=== PATIENT | male | born 1995 | race Caucasian/White ===

== ENCOUNTER 2017-02-18 22:50 | Emergency (ER) | payer BC ==
[~2017-02-18 22:50] MED LIST: Cephalexin 500 MG Cap PO ONE
[2017-02-18] MEDS ORDERED: Lidocaine 1% 20 ML MDV INJECT ONE (22:58)
[2017-02-18] MEDS ORDERED: Bacitracin/Neomycin/Polymyxin B Oint 28.4 GM Tube TOP ONE (22:58)
[2017-02-18] MEDS ORDERED: Diphtheria,Pertussis(Acell),Tetanus Vaccine 0.5 ML Syringe ONE (23:23)
[2017-02-18] MEDS ORDERED: Bacitracin/Neomycin/Polymyxin B Oint 0.9 GM U/D Packet ONE (23:23)
[2017-02-18] MEDS ORDERED: Take Home: Cephalexin 500 MG Cap, 4 Cap Pack PO ONE (23:30)
--- NOTE | 2017-02-18 23:31 | EDM.PDOC ---
ED HPI GENERAL MEDICAL PROBLEM - General Chief Complaint: General Stated Complaint: FACIAL LAC Time Seen by Provider: 02/18/17 23:00 Source of Information: Reports: Patient History Limitations: Reports: No Limitations - History of Present Illness INITIAL COMMENTS - FREE TEXT/NARRATIVE: Was riding a bull when he was thrown and stepped on by the bull on the right side of his face. has 2.4 cm laceration to the right jaw line that is gapping and some bleeding noted that was easily stopped with slight pressure. Has abrasion from jaw line to behind the right ear. No bleeding noted. Denies neck pain or other facial pain. Witnesses deny any LOC. Denies any other pain or injury. Onset: Today Location: Reports: Face Quality: Reports: Throbbing Severity: Mild Associated Symptoms: Reports: No Other Symptoms Right Face Pain Score (Numeric/FACES): 4 - Related Data Allergies Allergy/AdvReac Type Severity Reaction Status Date / Time No Known Allergies Allergy Verified 02/18/17 22:43 Home Meds: Home Meds . [No Known Home Meds] 02/18/17 [History] Past Medical History - Past Health History Medical/Surgical History: Denies Medical/Surgical History Social & Family History - Tobacco Use Tobacco Use Within Last Twelve Months: Snuff/Dip ED ROS GENERAL - Review of Systems Review Of Systems: See Below Constitutional: Reports: No Symptoms HEENT: Reports: Ear Pain. Denies: Vision Change Respiratory: Reports: No Symptoms Cardiovascular: Reports: No Symptoms GI/Abdominal: Reports: No Symptoms Musculoskeletal: Reports: No Symptoms Skin: Reports: Wound (right jaw line) Neurological: Denies: Dizziness, Headache ED EXAM, GENERAL - Physical Exam Exam: See Below Exam Limited By: No Limitations General Appearance: Alert, WD/WN, Moderate Distress Eye Exam: Bilateral Eye: PERRL Ears: Normal Canal, Normal TMs Nose: Normal Inspection Throat/Mouth: Normal Inspection, Normal Oropharynx, Other (states that top right tooth feels broke. ) Head: Facial Swelling (right ), Facial Tenderness (right) Neck: Normal Inspection, Supple, Non-Tender, Full Range of Motion Respiratory/Chest: No Respiratory Distress, Lungs Clear, Normal Breath Sounds Cardiovascular: Regular Rate, Rhythm GI/Abdominal: Normal Bowel Sounds, Soft, Non-Tender, No Organomegaly Extremities: Normal Inspection, Normal Range of Motion, Non-Tender Neurological: Alert, Oriented Skin Exam: Warm, Dry, Other (wound as noted in HPI) ED GENERAL MEDICAL PROCEDURES - Laceration/Wound Repair Right Lower Jaw Lac/wound length in cm: 2.4 Appearance: Subcutaneous Distal NVT: Neuro & Vascular Intact Anesthetic Type: Local Local Anesthesia - Lidocaine (Xylocaine): 1% Plain Local Anesthetic Volume: 2cc Skin Prep: Saline Saline irrigation (cc's): 120 Exploration/Debridement/Repair: Wound Explored, Minimal Debridement Closed with: Sutures Suture Size: other (5-0) Suture Type: Nylon, Interrupted Tetanus Status Addressed: Yes Complications: No Course - Orders/Labs/Meds Meds: Medications Discontinued Medications Generic Name Dose Route Start Last Admin Trade Name Freq PRN Reason Stop Dose Admin Lidocaine HCl 20 ml 02/18/17 22:58 Xylocaine 1% INJECT 02/18/17 22:59 ONETIME ONE Neomycin/Polymyxin/Bacitracin 1 gm 02/18/17 22:58 Triple Antibiotic Oint TOP 02/18/17 22:59 ONETIME ONE Departure - Departure Time of Disposition: 23:25 Disposition: Home, Self-Care 01 Condition: good Clinical Impression: Laceration of face Qualifiers: Encounter type: initial encounter Qualified Code(s): S01.81XA - Laceration without foreign body of other part of head, initial encounter - Discharge Information Forms: ED Department Discharge Additional Instructions: Cephalexin 500 mg twice a day for 10 days sutures out in 10 days- there are 5 keep area clean and dry antibiotic ointment and dressing to cover If any signs of infection then return to the clinic - Problem List & Annotations (1) Laceration of face SNOMED Code(s): 146448990 Code(s): S01.81XA - LACERATION W/O FOREIGN BODY OF OTH PART OF HEAD, INIT ENCNTR Status: Acute Priority: High Current Visit: Yes Qualifiers: Encounter type: initial encounter Qualified Code(s): S01.81XA - Laceration without foreign body of other part of head, initial encounter - Problem List Review Problem List Initiated/Reviewed/Updated: Yes
[2017-02-19 00:25] VITALS: BP 154/86
== END 2017-02-18 23:55 | disposition home or self-care (01) ==
LOC: CC.ED 22:50
DX: S01.81XA Laceration without foreign body of other part of head, initial encounter (principal); V80.018A Animal-rider injured by fall from or being thrown from other animal in noncollision accident, initial encounter
CPT/HCPCS: 12011; 90471; 90715; 99282; A9270